=== PATIENT | female | born 1985 | race Caucasian/White ===

== ENCOUNTER 2018-11-07 05:40 | Emergency (ER) | payer MEDICAID ==
[~2018-11-07] VITALS: Ht 162.6 cm; Wt 52.3 kg
[~2018-11-07 05:40] MED LIST: HYDR-4383 PO
[2018-11-07 05:45] VITALS: BP 119/81
== END 2018-11-07 06:27 | disposition left against medical advice (07) ==
LOC: ER 05:40
DX: S62.616A Displaced fracture of proximal phalanx of right little finger, initial encounter for closed fracture (principal); F15.90 Other stimulant use, unspecified, uncomplicated; X58.XXXA Exposure to other specified factors, initial encounter; Y93.89 Activity, other specified; Y92.89 Other specified places as the place of occurrence of the external cause; Y99.8 Other external cause status
CPT/HCPCS: 73130; 99284

== ENCOUNTER 2019-01-04 14:34 | Emergency (ER) | payer MEDICAID ==
[~2019-01-04] VITALS: Ht 162.6 cm; Wt 52.3 kg
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
[2019-01-04 14:44] VITALS: BP 117/82
[2019-01-04] MEDS ORDERED: acetaminophen 325mg tablet PO ONE (14:45)
[2019-01-04 15:42] LABS: BASOPHILS % (AUTO) 0.5 % (0-1); EOSINOPHILS # (AUTO) 0.1 X10'3 (0-0.9); EOSINOPHILS % (AUTO) 1.7 % (0-6); HEMATOCRIT 41.3 % (35.0-45.0); HEMOGLOBIN 13.6 g/dl (12.0-16.0); LYMPHOCYTES # (AUTO) 2.2 X10'3 (1.1-4.8); LYMPHOCYTES % (AUTO) 34.6 % (21-51); MEAN CORPUSCULAR HEMOGLOBIN 28.5 PG (27.0-31.0); MEAN CORPUSCULAR VOLUME 86.5 FL (78-98); MEAN PLATELET VOLUME 7.7 FL (7.4-10.4); MONOCYTES # (AUTO) 0.6 X10'3 (0-0.9); MONOCYTES % (AUTO) 10.1 % (2-12); NEUTROPHILS # (AUTO) 3.3 X10'3 (1.8-7.7); NEUTROPHILS % (AUTO) 53.1 % (42-75); PLATELET COUNT 255 X10'3 (140-440); RED BLOOD COUNT 4.78 X10'6 (4.20-5.60); RED CELL DISTRIBUTION WIDTH 13.5 % (11.5-14.5); WHITE BLOOD COUNT 6.2 X10'3 (4.5-11.0)
[2019-01-04 15:55] LABS: ETHANOL < 0.010 GM/DL (0.0-0.010); TROPONIN I < 0.04 NG/ML (0.0-0.05)
== END 2019-01-04 15:54 | disposition left against medical advice (07) ==
LOC: ER 14:35
DX: S06.0X0A Concussion without loss of consciousness, initial encounter (principal); S80.02XA Contusion of left knee, initial encounter; S00.81XA Abrasion of other part of head, initial encounter; M23.8X1 Other internal derangements of right knee; F12.90 Cannabis use, unspecified, uncomplicated; F15.90 Other stimulant use, unspecified, uncomplicated; F17.200 Nicotine dependence, unspecified, uncomplicated; Z98.890 Other specified postprocedural states; Z79.899 Other long term (current) drug therapy; V53.6XXA Passenger in pick-up truck or van injured in collision with car, pick-up truck or van in traffic accident, initial encounter; Y93.89 Activity, other specified; Y92.89 Other specified places as the place of occurrence of the external cause; Y99.8 Other external cause status
CPT/HCPCS: 36415; 70450; 71045; 73564; 80320; 84484; 85025; 99284

== ENCOUNTER 2019-12-15 00:23 | Emergency (ER) | payer MEDICAID ==
[~2019-12-15] VITALS: Ht 162.6 cm; Wt 55.0 kg
[2019-12-15 00:25] VITALS: BP 119/54
[2019-12-15] MEDS ORDERED: CefTRIAXone 1000mg IM Kit (w/lidocaine diluent) IM ONE (00:55)
[2019-12-15 01:22] LABS: URINE HCG NEGATIVE (NEG)
[2019-12-15] MEDS ORDERED: SULF1TAB49 PO (01:34)
[2019-12-15] MEDS ORDERED: CEPH500C5 PO (01:34)
[2019-12-15 01:35] LABS: URINE AMPHETAMINE SCREEN POSITIVE (Neg); URINE BARBITUATE SCREEN NEGATIVE (Neg); URINE BENZODIAZEPINES SCREEN NEGATIVE (Neg); URINE CANNABINOID SCREEN POSITIVE (Neg); URINE COCAINE SCREEN NEGATIVE (Neg); URINE METHADONE SCREEN NEGATIVE (Neg); URINE OPIATE SCREEN POSITIVE (Neg); URINE PHENCYCLIDINE SCREEN NEGATIVE (Neg)
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
== END 2019-12-15 01:40 | disposition home or self-care (01) ==
LOC: ER 00:24
DX: L03.113 Cellulitis of right upper limb (principal); Z79.899 Other long term (current) drug therapy; F15.90 Other stimulant use, unspecified, uncomplicated; Z72.89 Other problems related to lifestyle; Z90.89 Acquired absence of other organs; R51 Headache
CPT/HCPCS: 80305; 81025; 96372; 99283; J0696

== ENCOUNTER 2020-11-27 11:04 | Emergency (ER) | payer MEDICAID ==
[~2020-11-27] VITALS: Ht 152.4 cm; Wt 47.0 kg
[2020-11-27 12:42] LABS: BASOPHILS # (AUTO) 0.1 X10'3 (0-0.2); BASOPHILS % (AUTO) 0.5 % (0-1); EOSINOPHILS # (AUTO) 0.1 X10'3 (0-0.9); EOSINOPHILS % (AUTO) 0.6 % (0-6); HEMATOCRIT 40.6 % (35.0-45.0); HEMOGLOBIN 13.6 g/dl (12.0-16.0); LYMPHOCYTES # (AUTO) 0.9 X10'3 (1.1-4.8); LYMPHOCYTES % (AUTO) 7.6 % (21-51); MEAN CORPUSCULAR HEMOGLOBIN 29.9 PG (27.0-31.0); MEAN CORPUSCULAR HGB CONC 33.5 g/dL (33.0-36.5); MEAN PLATELET VOLUME 7.5 FL (7.4-10.4); MONOCYTES # (AUTO) 0.9 X10'3 (0-0.9); MONOCYTES % (AUTO) 7.9 % (2-12); NEUTROPHILS % (AUTO) 83.4 % (42-75); PLATELET COUNT 337 X10'3 (140-440); RED BLOOD COUNT 4.56 X10'6 (4.20-5.60); RED CELL DISTRIBUTION WIDTH 13.1 % (11.5-14.5)
[2020-11-27 12:53] LABS: ALANINE AMINOTRANSFERASE 26 U/L (12-78); ALBUMIN/GLOBULIN RATIO 0.6 (1.1-1.5); ALKALINE PHOSPHATASE 130 IU/L (46-116); ANION GAP 9 (8-16); ASPARTATE AMINO TRANSFERASE 24 U/L (10-37); BILIRUBIN,TOTAL 0.4 MG/DL (0.1-1.0); BLOOD UREA NITROGEN 9 MG/DL (7-18); BUN/CREATININE RATIO 15.5 (6.6-38.0); CALCIUM 8.9 MG/DL (8.5-10.1); CHLORIDE 103 MMOL/L (99-107); CREATININE 0.58 MG/DL (0.40-0.90); GLUCOSE 104 MG/DL (70-104); POTASSIUM 3.7 MMOL/L (3.5-5.1); SODIUM 138 MMOL/L (135-145); TOTAL CARBON DIOXIDE 26.4 MMOL/L (24-32); TOTAL PROTEIN 7.7 G/DL (6.4-8.2); eGFR > 90 ML/MIN
[2020-11-27] MEDS ORDERED: iohexol 300mg/ml 100ml inj. ONE (13:12)
[2020-11-27 13:22] LABS: CLARITY,URINE CLEAR (Clear); COLOR,URINE YELLOW (Yellow); GLUCOSE, URINE NEGATIVE (Neg); KETONES,URINE NEGATIVE (Neg); LEUKOCYTE ESTERASE ,URINE NEGATIVE (Neg); NITRITES, URINE NEGATIVE (Neg); OCCULT BLOOD,URINE LARGE (Neg); PH,URINE 6.5 (4.8-8.0); PROTEIN,URINE NEGATIVE (Neg); URINE HCG NEGATIVE (NEG)
[2020-11-27 13:26] LABS: UA COLLECTION TYPE CLN CATCH MIDSTREAM
[2020-11-27 13:31] LABS: WBC,URINE 30-50 /HPF (0-4)
[2020-11-27 13:32] LABS: BACTERIA,URINE FEW /HPF (Neg); MUCUS STRANDS MODERATE /LPF (Neg); SQUAMOUS EPITHELIAL CELL,UR MODERATE /LPF (FEW)
[2020-11-27 13:33] LABS: URINE AMPHETAMINE SCREEN POSITIVE (Neg); URINE BARBITUATE SCREEN NEGATIVE (Neg); URINE BENZODIAZEPINES SCREEN NEGATIVE (Neg); URINE CANNABINOID SCREEN POSITIVE (Neg); URINE COCAINE SCREEN NEGATIVE (Neg); URINE METHADONE SCREEN NEGATIVE (Neg); URINE OPIATE SCREEN POSITIVE (Neg); URINE PHENCYCLIDINE SCREEN NEGATIVE (Neg)
[2020-11-27 14:07] VITALS: BP 99/62
[2020-11-27] MEDS ORDERED: LIDOcaine 1.5% w/epinephrine 1:200,000 5ml ampul IJ ONE (14:30)
[2020-11-27] MEDS ORDERED: CefTRIAXone 1000mg IM Kit (w/lidocaine diluent) IM ONE (14:30)
[2020-11-27] MEDS ORDERED: LIDOcaine 1% W/epiNEPHrine 1:200,000 10ml vial IJ ONE (14:45)
[2020-11-27] MEDS ORDERED: CEPH250T PO (15:16)
[2020-11-27] MEDS ORDERED: SULF1TAB49 PO (15:16)
== END 2020-11-27 16:17 | disposition home or self-care (01) ==
LOC: ER 11:05
DX: L02.413 Cutaneous abscess of right upper limb (principal); R50.9 Fever, unspecified; F19.10 Other psychoactive substance abuse, uncomplicated; F15.90 Other stimulant use, unspecified, uncomplicated; F11.90 Opioid use, unspecified, uncomplicated; Z90.89 Acquired absence of other organs; Z72.89 Other problems related to lifestyle; Z79.2 Long term (current) use of antibiotics
CPT/HCPCS: 10060; 36415; 73201; 80053; 80305; 81001; 81025; 83605; 84145; 85025; 87040; 87088; 96372; 99285; J0696; Q9967

== ENCOUNTER 2021-03-20 04:44 | Emergency (ER) | payer MEDICAID | END 2021-03-20 06:10 | disposition left against medical advice (07) | LOC: ER 04:45 | DX: L08.9 Local infection of the skin and subcutaneous tissue, unspecified (principal); Z53.21 Procedure and treatment not carried out due to patient leaving prior to being seen by health care provider ==

== ENCOUNTER 2021-12-25 23:38 | Emergency (ER) | payer MEDICAID ==
[~2021-12-25] VITALS: Ht 162.6 cm; Wt 54.5 kg
[2021-12-25 23:42] VITALS: BP 120/76
[2021-12-26] MEDS ORDERED: CefTRIAXone 1000mg IM Kit (w/lidocaine diluent) IM STA ×2 (00:19)
[2021-12-26] MEDS ORDERED: azithromycin 250mg tablet PO ONE ×2 (00:20)
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
--- NOTE | 2021-12-26 00:59 | NUR ---
PT STILL NOT BACK IN ROOM.
[2021-12-26 01:06] LABS: URINE HCG NEGATIVE (NEG)
== END 2021-12-26 01:30 | disposition left against medical advice (07) ==
LOC: ER 23:38
DX: A64 Unspecified sexually transmitted disease (principal); N64.4 Mastodynia; F17.200 Nicotine dependence, unspecified, uncomplicated; F15.90 Other stimulant use, unspecified, uncomplicated; F11.90 Opioid use, unspecified, uncomplicated; Z72.89 Other problems related to lifestyle; Z79.899 Other long term (current) drug therapy
CPT/HCPCS: 36415; 81025; 87491; 99283

== ENCOUNTER 2022-04-04 03:23 | Emergency (ER) | payer MEDICAID ==
[~2022-04-04] VITALS: Ht 162.6 cm; Wt 50.0 kg
[2022-04-04 03:30] VITALS: BP 138/91
== END 2022-04-04 06:37 | disposition left against medical advice (07) ==
LOC: ER 03:23
DX: L02.91 Cutaneous abscess, unspecified (principal); Z53.21 Procedure and treatment not carried out due to patient leaving prior to being seen by health care provider

== ENCOUNTER 2023-11-22 18:50 | Emergency (ER) | payer MEDICAID ==
[~2023-11-22] VITALS: Ht 162.6 cm; Wt 54.5 kg
[2023-11-22] MEDS ORDERED: TETanus/Pertussis (Acell)/Diphther VAC/PF (Tdap-Adult) 0.5ml syringe IMVAC ONE (19:00)
[2023-11-22] MEDS ORDERED: LIDOcaine 1% W/epiNEPHrine 1:100,000 20ml vial IJ ONE (19:00)
[2023-11-22 19:01] VITALS: BP 113/68; PULSE 106; RESP 18; TEMP 98.8; O2SAT 98
== END 2023-11-22 20:21 | disposition left against medical advice (07) ==
LOC: ER 18:51
DX: L02.419 Cutaneous abscess of limb, unspecified (principal); Z53.21 Procedure and treatment not carried out due to patient leaving prior to being seen by health care provider
CPT/HCPCS: 90715; 99281

== ENCOUNTER 2024-09-09 22:06 | Emergency (ER) | payer MEDICAID ==
[~2024-09-09] VITALS: Ht 162.6 cm; Wt 59.2 kg
[2024-09-09 22:11] VITALS: BP 134/90; PULSE 114; RESP 18; O2SAT 99
[2024-09-09] MEDS ORDERED: CLIN300C54 PO (22:31)
[2024-09-09] MEDS: clindamycin 150mg capsule PO ONE (22:38)
[2024-09-09 22:39] VITALS: TEMP 97.9
== END 2024-09-09 22:41 | disposition home or self-care (01) ==
LOC: ER 22:07
DX: S01.01XD Laceration without foreign body of scalp, subsequent encounter (principal); F15.90 Other stimulant use, unspecified, uncomplicated; F11.90 Opioid use, unspecified, uncomplicated; Z90.89 Acquired absence of other organs; X58.XXXD Exposure to other specified factors, subsequent encounter
CPT/HCPCS: 99283